=== PATIENT | male | born 1965 | race Caucasian/White ===

== ENCOUNTER 2016-10-03 17:49 | Emergency (ER) | payer OTHER ==
[~2016-10-03] VITALS: Ht 182.9 cm; Wt 90.7 kg
[~2016-10-03 17:49] MED LIST: FLEXERIL10 MG PO; MEDROL DOSEPAK1 PAC PO; NAPROXEN500 MG PO; PERCOCET 325 MG1 TA2 PO
[2016-10-03 17:54] VITALS: BP 112/68
--- NOTE | 2016-10-03 18:46 | ED INFLUENZA/URI COMPLAINT ---
History of Present Illness General Chief Complaint: General Adult Stated Complaint: FLU SYMPTOMS Source: patient, old records Exam Limitations: no limitations Vital Signs & Intake/Output Vital Signs & Intake/Output Vital Signs Date Time Temp Pulse Resp B/P Pulse O2 O2 Flow FiO2 Ox Delivery Rate 10/03 1846 Room Air 10/03 1754 97.3 111 20 112/68 98 Room Air Allergies Coded Allergies: NO KNOWN ALLERGIES (12/08/12) Reconcile Medications CYCLOBENZAPRINE HCL (Flexeril) 10 MG TABLET 1 TAB PO TID PRN SPASM CYCLOBENZAPRINE HCL (Flexeril) 10 MG TABLET 1 TAB PO TID PRN PAIN Ibuprofen 800 MG TABLET 1 TAB PO TID PRN PAIN, FEVER Methylprednisolone. (Medrol) 4 MG TAB.DS.PK 0 PO DAILY . USE DIRECTED Naproxen 500 MG TABLET 1 TAB PO BID PRN PAIN Oseltamivir Phosphate (Tamiflu) 75 MG CAPSULE 1 CAP PO BID VIRAL OXYCODONE HCL/ACETAMINOPHEN (Percocet 5-325 MG Tablet) 325 MG/5 MG TAB 1 TAB PO Q4-6 PRN PRN PAIN Triage Note: PT TO ED C/O FLU LIKE S/S X 3 DAYS. C/O PRODUCTIVE COUGH WITH YELLOW SPUTUM. Triage Nurses Notes Reviewed? yes Onset: Abrupt Duration: day(s): (2), constant Timing: recent history Severity: mild, moderate Severity Numbers: 5 Prior Episodes/Possible Cause: occassional episodes No Modifying Factors: none Associated Symptoms: cough, fever/chills, muscle aches HPI: 51-year-old male with no medical history nonsmoker presents emergency room for evaluation complaining of a 3 day history of generalized bodyaches subjective fever chills and nonproductive cough. His son is being seen currently for similar symptoms. He is not taken anything for his symptoms were sought care until today area no shortness of breath chest pain abdominal pain nausea vomiting or diarrhea. He denies congestion sore throat ear pain. There are no modifying factors or associated symptoms otherwise Past History Travel History Traveled to [place] past 21 day No Medical History Any Pertinent Medical History? none Neurological: NONE EENT: NONE Cardiovascular: NONE Respiratory: NONE Gastrointestinal: NONE Hepatic: NONE Renal: NONE Musculoskeletal: NONE Psychiatric: NONE Endocrine: NONE Surgical History Surgical History: BACK SURGERY Psychosocial History What is your primary language Slovak Tobacco Use: Quit >30 days ago ETOH Use: denies use Illicit Drug Use: denies illicit drug use Family History Hx Contributory? No Review of Systems Review of Systems Constitutional: Reports: see HPI. All Other Systems: Reviewed and Negative Comments Review of systems: See HPI, All other systems negative. Constitutional, chills fever, no malaise no weight loss HEENT: no sore throat congestion Cardiovascular: No chest pain , no palpitation , Skin, no rashes, no change in skin Respiratory: No dyspnea cough no sputum no hemoptysis GI: No nausea no vomiting, no diarrhea : No dysuria Muscle skeletal: No joint pain, no back pain, no neck pain, Neurologic: No numbness no headache Psych: No stress Heme/endocrine: No bruising no bleeding Immunology: No lymphadenopathy Physical Exam Physical Exam General Appearance: well developed/nourished, no apparent distress, alert, awake Ears, Nose, Throat: normal ENT inspection, moist mucous membrane, hearing grossly normal, Tympanic normal, pharynx normal Comments: Well-developed well-nourished patient in no apparent distress. Head/Face: Atraumatic, no maxillary/frontal sinus tenderness, no facial swelling Eyes: PERRL, EOMI, no conjunctival injection. No nystagmus Ear:External auditory canal and Tympanic membranes clear, no erythema, no FB. Nose: atraumatic.Normal inspection: No bleeding, no septal hematoma Throat: Moist mucous membranes.Pharynx normal. No pharyngeal erythema/exudate seen. No stridor/drooling or assymetry. No swelling or edema. Neck: Supple, no lymphadenopathy, FROM Back: FROM, Nontender Cardiovascular: Regular rate and rhythms no murmurs rubs or gallops, Respiratory: Chest nontender.There were no bony deformities, no asymmetry. No respiratory distress. Patient speaking in full complete sentences. Breath sounds clear to auscultation bilaterally: NO W/R/R Extremities: full range of motion Neuro: Alert and oriented x3 Skin: Warm & dry;No appreciable rash on exposed skin Psych: Mood affect normal, normal memory normal judgment. Core Measures Severe Sepsis Present: No Septic Shock Present: No Progress Differential Diagnosis: influenza, pneumonia, pharyngitis, sinusitis, BRONCHITIS Plan of Care: Orders Procedure Date/time Status RAPID VIRAL INFLUENZA A 10/03 1803 Complete Discussed with the patient his flu swab results. Advised Tylenol Motrin for fever chills body aches fluids follow-up with his primary care physician, advised return anytime sooner if symptoms worsen answer all his questions he feels febrile this plan clear discharge (GT TEE,ALTA) Initial ED EKG: none Departure Departure Time of Disposition: 1912 Disposition: HOME OR SELF CARE Condition: Stable Clinical Impression Primary Impression: Influenza Referrals: RAGHAVENDRA BOTELLO,PETRA Tariq (PCP/Family) Additional Instructions: Ibuprofen 800 mg every 8 hours, Tamiflu as directed. Follow-up with your primary care physician if symptoms persist. Drink plenty of fluids return to the emergency room with any concerns Departure Forms: Customer Survey General Discharge Information Prescriptions: Current Visit Scripts Ibuprofen 1 TAB PO TID PRN PAIN, FEVER #30 TAB Oseltamivir Phosphate (Tamiflu) 1 CAP PO BID #10 CAP
[2016-10-03] MEDS ORDERED: TAMIFLU75 M1 PO (19:14)
[2016-10-03] MEDS ORDERED: IBUPROFEN800 M1 PO (19:14)
== END 2016-10-03 19:50 ==
LOC: ERH 17:49
DX: J11.1 Influenza due to unidentified influenza virus with other respiratory manifestations (principal)
CPT/HCPCS: 87804; 87804-59

== ENCOUNTER 2016-12-29 01:38 | Emergency (ER) | payer OTHER ==
[~2016-12-29 01:38] MED LIST changes: +IBUPROFEN800 M1 PO; +TAMIFLU75 M1 PO
[2016-12-29 01:54] VITALS: BP 102/76
[2016-12-29] MEDS ORDERED: AMBIEN10 M1 PO (02:38)
--- NOTE | 2016-12-29 02:39 | ED GENERAL ADULT ---
History of Present Illness General Chief Complaint: General Adult Stated Complaint: " PER PT CANT SLEEP FOR 2 DAYS" Source: patient, old records Exam Limitations: no limitations Vital Signs & Intake/Output Vital Signs & Intake/Output Vital Signs Date Time Temp Pulse Resp B/P B/P Pulse O2 O2 Flow FiO2 Mean Ox Delivery Rate 12/29 0154 96.0 69 18 102/76 98 Room Air Allergies Coded Allergies: No Known Allergies (12/29/16) Reconcile Medications CYCLOBENZAPRINE HCL (Flexeril) 10 MG TABLET 1 TAB PO TID PRN SPASM CYCLOBENZAPRINE HCL (Flexeril) 10 MG TABLET 1 TAB PO TID PRN PAIN Ibuprofen 800 MG TABLET 1 TAB PO TID PRN PAIN, FEVER Methylprednisolone. (Medrol) 4 MG TAB.DS.PK 0 PO DAILY . USE DIRECTED Naproxen 500 MG TABLET 1 TAB PO BID PRN PAIN Oseltamivir Phosphate (Tamiflu) 75 MG CAPSULE 1 CAP PO BID VIRAL OXYCODONE HCL/ACETAMINOPHEN (Percocet 5-325 MG Tablet) 325 MG/5 MG TAB 1 TAB PO Q4-6 PRN PRN PAIN Zolpidem Tartrate (Ambien) 10 MG TABLET 1 TAB PO QPMP PRN insomnia May repeat x 1 if no effect in 45 minutes Triage Note: TRIAGE: PATIENT TO ER FROM HOME REPORTS "I HAVEN'T SLEPT FOR 2 DAYS." PATIENT DENIES ANY OTHER COMPLAINTS. DENIES ETOH/DRUG USE/ NEW MEDICATIONS. Triage Nurses Notes Reviewed? yes Onset: 2 days Duration: day(s):, constant, continues in ED Timing: recent history Injury Environment: home Severity: severe No Modifying Factors: none HPI: 9 days prior to admission patient was on a steroid taper for back pain. 2 days prior to admission he received spinal injection. He then reports being unable to sleep longer than 15 minutes at a time. He denies fever chills nausea vomiting diarrhea abdominal pain chest pain shortness breath headache dysuria rash bleeding. Past History Travel History Traveled to [place] past 21 day No Medical History Any Pertinent Medical History? none Neurological: NONE EENT: NONE Cardiovascular: NONE Respiratory: NONE Gastrointestinal: NONE Hepatic: NONE Renal: NONE Musculoskeletal: NONE Psychiatric: NONE Endocrine: NONE Blood Disorders: NONE Cancer(s): NONE GRAIN ELEVATOR OPERATOR/Reproductive: NONE Surgical History Surgical History: BACK SURGERY Psychosocial History What is your primary language Monegasque Tobacco Use: Quit >30 days ago Family History Hx Contributory? No Review of Systems Review of Systems Constitutional: Reports: no symptoms. EENTM: Reports: no symptoms. Respiratory: Reports: no symptoms. Cardiovascular: Reports: no symptoms. GI: Reports: no symptoms. Genitourinary: Reports: no symptoms. Musculoskeletal: Reports: no symptoms. Skin: Reports: no symptoms. Neurological/Psychological: Reports: see HPI. Hematologic/Endocrine: Reports: no symptoms. Immunologic/Allergic: Reports: no symptoms. All Other Systems: Reviewed and Negative Physical Exam Physical Exam General Appearance: well developed/nourished, alert, awake, anxious, mild distress Head: atraumatic, normal appearance Eyes: Bilateral: normal appearance, PERRL, EOMI. Ears, Nose, Throat: normal pharynx, normal ENT inspection, hearing grossly normal Neck: normal inspection, supple, full range of motion, no midline tenderness Respiratory: normal breath sounds, chest non-tender, no respiratory distress, quiet respiration, lungs clear Cardiovascular: regular rate/rhythm, normal peripheral pulses, norml femoral pulses equa Peripheral Pulses: 4+ carotid (R), 4+ carotid (L) Gastrointestinal: normal bowel sounds, soft, non-tender, no organomegaly Back: normal inspection, normal range of motion Extremities: normal inspection, normal capillary refill, normal range of motion, no edema Neurologic/Psych: no motor/sensory deficits, awake, alert, oriented x 3, normal gait, normal mood/affect, 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 Skin: intact, normal color, warm/dry Lymphatic: no anterior cervical wil Core Measures ACS in differential dx? No CVA/TIA Diagnosis: No Severe Sepsis Present: No Septic Shock Present: No Progress Differential Diagnoses I considered the following diagnoses in my evaluation of the patient: Medication -induced insomnia. Plan of Care: Ambien Initial ED EKG: none Departure Departure Time of Disposition: 234 Disposition: HOME OR SELF CARE Condition: Stable Clinical Impression Primary Impression: Insomnia due to drug Referrals: RAGHAVENDRA BOTELLO,PETRA Tariq (PCP/Family) Departure Forms: Customer Survey General Discharge Information Prescriptions: Current Visit Scripts Zolpidem Tartrate (Ambien) 1 TAB PO QPMP PRN insomnia #30 TAB May repeat x 1 if no effect in 45 minutes Critical Care Note Critical Care Note Critical Care Time: non-applicable
== END 2016-12-29 02:46 ==
LOC: ERH 01:38
DX: F14 Cocaine related disorders (principal)